=== PATIENT | female | born 1995 | race African-American/Black ===

== ENCOUNTER 2020-07-27 09:27 | Emergency (ER) | payer OTHER ==
[~2020-07-27] VITALS: Ht 175.3 cm; Wt 72.7 kg
[2020-07-27 09:31] VITALS: BP 121/86; Ht 175.3 cm; Wt 72.7 kg
== END 2020-07-27 12:14 | disposition home or self-care (01) ==
LOC: D.ER 09:27
DX: Z59.0 Homelessness (principal); R53.1 Weakness; T73.0XXA Starvation, initial encounter